=== PATIENT | male | born 1955 | race African-American/Black ===

== ENCOUNTER 2019-12-10 22:41 | Emergency (ER) | payer OTHER ==
[2019-12-10] MEDS ORDERED: NA CHLORIDE 0.9% 1,000 ML ONE (23:18)
[2019-12-10] MEDS ORDERED: FAMOTIDINE 20 MG/2 ML VIAL IV ONE (23:18)
[2019-12-10] MEDS ORDERED: METHYLPREDNISOLONE 125 MG INJ ONE (23:18)
[2019-12-10] MEDS ORDERED: predniSONE 20 MG TAB ONE (23:18)
[2019-12-10] MEDS ORDERED: DIPHENHYDRAMINE 50 MG/ML VIAL ONE (23:18)
--- NOTE | 2019-12-10 23:20 | EDPHYS ---
Physician Documentation [facility] Name: Conrad Otoole Age: 64 yrs Sex: Male : 1955 Arrival Date: 12/10/2019 Time: 22:53 Bed 8 Private MD: ED Physician Mikey Lubin HPI: 12/09 23:15 This 64 yrs old Black Male presents to ER via EMS with complaints of stung by bees, estevan abdominal pain. 23:15 by a bee. Onset: The symptoms/episode began/occurred just prior to arrival. Animal estevan information: Patient/Caregiver unable to provide information related to the animal. The patient presents with abdominal pain in the epigastric area, in the upper abdomen. Onset: The symptoms/episode began/occurred just prior to arrival. The patient presents to the emergency department with nausea, vomiting, diarrhea, abdominal pain. Possible causes: unknown. The symptoms are aggravated by nothing. The symptoms are alleviated by nothing. Associated signs and symptoms: The patient has no apparent associated signs or symptoms. Historical: - Allergies: 22:57 No Known Allergies; rv - Home Meds: 22:57 None [Active]; rv - PMHx: 22:57 None; rv - PSHx: 22:57 None; rv - Immunization history:: Adult Immunizations up to date. - Social history:: Smoking status: Patient reports the use of cigarette tobacco products, smokes one-half pack cigarettes per day. - Family history:: not pertinent. ROS: 23:15 Constitutional: Negative for fever, chills, and weight loss, Eyes: Negative for injury, estevan pain, redness, and discharge, ENT: Negative for injury, pain, and discharge, Neck: Negative for injury, pain, and swelling, Cardiovascular: Negative for chest pain, palpitations, and edema, Respiratory: Negative for shortness of breath, cough, wheezing, and pleuritic chest pain, Back: Negative for injury and pain, : Negative for injury, bleeding, discharge, and swelling, MS/Extremity: Negative for injury and deformity, Skin: Negative for injury, rash, and discoloration, Neuro: Negative for headache, weakness, numbness, tingling, and seizure, Psych: Negative for depression, anxiety, suicide ideation, homicidal ideation, and hallucinations, Allergy/Immunology: Negative for hives, rash, and allergies, Endocrine: Negative for neck swelling, polydipsia, polyuria, polyphagia, and marked weight changes, Hematologic/Lymphatic: Negative for swollen nodes, abnormal bleeding, and unusual bruising. 23:15 Abdomen/GI: Positive for abdominal pain, nausea and vomiting, diarrhea. Exam: 23:15 Constitutional: This is a well developed, well nourished patient who is awake, alert, estevan and in no acute distress. Head/Face: Normocephalic, atraumatic. Eyes: Pupils equal round and reactive to light, extra-ocular motions intact. Lids and lashes normal. Conjunctiva and sclera are non-icteric and not injected. Cornea within normal limits. Periorbital areas with no swelling, redness, or edema. ENT: Nares patent. No nasal discharge, no septal abnormalities noted. Tympanic membranes are normal and external auditory canals are clear. Oropharynx with no redness, swelling, or masses, exudates, or evidence of obstruction, uvula midline. Mucous membranes moist. Neck: Trachea midline, no thyromegaly or masses palpated, and no cervical lymphadenopathy. Supple, full range of motion without nuchal rigidity, or vertebral point tenderness. No Meningismus. Chest/axilla: Normal chest wall appearance and motion. Nontender with no deformity. No lesions are appreciated. Cardiovascular: Regular rate and rhythm with a normal S1 and S2. No gallops, murmurs, or rubs. Normal PMI, no JVD. No pulse deficits. Respiratory: Lungs have equal breath sounds bilaterally, clear to auscultation and percussion. No rales, rhonchi or wheezes noted. No increased work of breathing, no retractions or nasal flaring. Abdomen/GI: Soft, non-tender, with normal bowel sounds. No distension or tympany. No guarding or rebound. No evidence of tenderness throughout. Back: No spinal tenderness. No costovertebral tenderness. Full range of motion. Male : Normal genitalia with no discharge or lesions. Skin: Warm, dry with normal turgor. Normal color with no rashes, no lesions, and no evidence of cellulitis. MS/ Extremity: Pulses equal, no cyanosis. Neurovascular intact. Full, normal range of motion. Neuro: Awake and alert, GCS 15, oriented to person, place, time, and situation. Cranial nerves II-XII grossly intact. Motor strength 5/5 in all extremities. Sensory grossly intact. Cerebellar exam normal. Normal gait. Psych: Awake, alert, with orientation to person, place and time. Behavior, mood, and affect are within normal limits. 23:15 Musculoskeletal/extremity: DVT Exam: No signs of deep vein thrombosis. no pain, no swelling, no tenderness, negative Homans' sign noted on exam, no appreciated bluish discoloration, no erythema, no increased warmth. 12/10 00:28 ECG was reviewed by the Attending Physician. [facility] Vital Signs: 12/09 22:53 BP 153 / 65; Pulse 73; Resp 18; Temp 97.7; Pulse Ox 100% ; Weight 88.45 kg; Height 5 rv ft. 10 in. (177.80 cm); Pain 0/10; 12/10 00:32 BP 153 / 77; Pulse 66; Resp 17; Temp 98; Pulse Ox 100% on R/A; rv 12/09 22:53 Body Mass Index 27.98 (88.45 kg, 177.80 cm) rv MDM: 12/09 22:54 Patient medically screened. [facility] 23:18 Differential diagnosis: Nonspecific abd pain, gastritis. Data reviewed: vital signs, [facility] nurses notes, lab test result(s), EKG. Data interpreted: air sampling and monitoring: rate is 73 beats/min, rhythm is normal sinus rhythm, regular, Pulse oximetry: on room air is 100 %. Test interpretation: by ED physician or midlevel provider: ECG. Counseling: I had a detailed discussion with the patient and/or guardian regarding: the historical points, exam findings, and any diagnostic results supporting the discharge/admit diagnosis, lab results, the need for outpatient follow up, for definitive care, a family practitioner. ED course: much improved , benign exam, op clear. 23:57 Medication response: Benadryl, Pepcid, solumedrol. [facility] 12/09 23:06 Order name: CBC with Diff [facility] 12/09 23:06 Order name: Comprehensive Metabolic Panel; Complete Time: 00:14 [facility] 12/09 23:06 Order name: Troponin (emerg Dept Use Only); Complete Time: 00:14 [facility] 12/09 23:06 Order name: Lipase; Complete Time: 00:14 [facility] 12/10 00:25 Order name: Manual Differential [facility] 12/09 23:06 Order name: EKG; Complete Time: 23:07 [facility] 12/09 23:06 Order name: EKG - Nurse/Tech; Complete Time: 23:42 estevan EC/16 00:28 Rate is 69 beats/min. Rhythm is regular. QRS [place] is Normal. [place] interval is normal. QRS [place] interval is normal. QT interval is normal. No Q waves. T waves are Normal. No ST changes noted. Clinical impression: NSR w/ Non-specific ST/T Changes and No evidence of ischemia. Administered Medications: 12/09 23:41 Drug: predniSONE 20 mg Route: PO; rv 12/10 00:33 Follow up: Response: No adverse reaction rv 12/09 23:42 Drug: NS 0.9% 1000 ml Route: IV; Rate: 1 bolus; Site: right antecubital; rv 12/10 00:34 Follow up: IV Status: Completed infusion; IV Intake: 1000ml rv 12/09 23:42 Drug: Benadryl 25 mg Route: IVP; Site: right antecubital; rv 12/10 00:33 Follow up: Response: No adverse reaction rv 12/09 23:42 Drug: Pepcid 20 mg Route: IVP; Site: right antecubital; rv 12/10 00:33 Follow up: Response: No adverse reaction rv 12/09 23:42 Drug: SOLU-Medrol 125 mg Route: IVP; Site: right antecubital; rv 12/10 00:33 Follow up: Response: No adverse reaction rv Disposition: 12/10/19 23:20 Discharged to Home. Impression: Bee allergy status, Vomiting, Abdominal tenderness. - Condition is Stable. - Discharge Instructions: Abdominal Pain, Adult, Allergies, Adult, Bee, Wasp, or Hornet Sting, Adult, Nausea and Vomiting, Adult, Nausea and Vomiting, Adult, [id number], Abdominal Pain, Adult, [id number], Allergies, [id number]. - Prescriptions for Benadryl 25 mg Oral Capsule - take 1 capsule by ORAL route every 6 hours As needed; 30 tablet. Pepcid 20 mg Oral Tablet - take 1 tablet by ORAL route every 12 hours for 10 days; 20 tablet. Zofran 4 mg Oral Tablet - take 1 tablet by ORAL route every 12 hours As needed; 20 tablet. Prednisone 20 mg Oral Tablet - take 2 tablet by ORAL route once daily for 5 days; 10 tablet. EpiPen 0.3 mg Injection auto- injector - inject 1 pen by INTRAMUSCULAR route as directed Inject into the outer portion of the thigh, through clothing if necessary. Indicated in the emergency treatment of allergic reactions; 1 box. - Medication Reconciliation Form, Thank You Letter, Antibiotic Education, Prescription Opioid Use form. - Follow up: Private Physician; When: 2 - 3 days; Reason: Recheck today's complaints, Continuance of care, Re-evaluation by your physician. - Problem is new. - Symptoms have improved. Signatures: Dispatcher [employer] EDMS Mikey Lubin MD MD cha Vicente, Ronaldo RN RN rv Corrections: (The following items were deleted from the chart) 00:15 12/09 23:20 12/10/2019 23:20 Discharged to Home. Impression: Bee allergy status; estevan Vomiting. Condition is Stable. Forms are Medication Reconciliation Form, Thank You Letter, Antibiotic Education, Prescription Opioid Use. Follow up: Private Physician; When: 2 - 3 days; Reason: Recheck today's complaints, Continuance of care, Re-evaluation by your physician. Problem is new. Symptoms have improved. estevan 12/10 00:39 00:15 12/10/2019 23:20 Discharged to Home. Impression: Bee allergy status; Vomiting; rv Abdominal tenderness. Condition is Stable. Discharge Instructions: Allergies, Adult, Bee, Wasp, or Hornet Sting, Adult, Nausea and Vomiting, Adult, Nausea and Vomiting, Adult, [id number], Allergies, [id number]-ab-Tqoh. Prescriptions for Benadryl 25 mg Oral Capsule - take 1 capsule by ORAL route every 6 hours As needed; 30 tablet, Pepcid 20 mg Oral Tablet - take 1 tablet by ORAL route every 12 hours for 10 days; 20 tablet, Zofran 4 mg Oral Tablet - take 1 tablet by ORAL route every 12 hours As needed; 20 tablet, Prednisone 20 mg Oral Tablet - take 2 tablet by ORAL route once daily for 5 days; 10 tablet, EpiPen 0.3 mg Injection auto-injector - inject 1 pen by INTRAMUSCULAR route as directed Inject into the outer portion of the thigh, through clothing if necessary. Indicated in the emergency treatment of allergic reactions; 1 box. and Forms are Medication Reconciliation Form, Thank You Letter, Antibiotic Education, Prescription Opioid Use. Follow up: Private Physician; When: 2 - 3 days; Reason: Recheck today's complaints, Continuance of care, Re-evaluation by your physician. Problem is new. Symptoms have improved. estevan
--- NOTE | 2019-12-10 23:20 | ER ---
Nurse's Notes [facility] Name: Conrad Otoole Age: 64 yrs Sex: Male : 1955 Arrival Date: 12/10/2019 Time: 22:53 Bed 8 Private MD: Diagnosis: Bee allergy status;Vomiting;Abdominal tenderness Presentation: 12/09 22:53 Chief complaint: EMS states: COMPLAINING OF ABDOMINAL PAIN, NAUSEA AND VOMITING. rv PATIENT WAS ON THE COUCH UPON ASSESSMENT AND COMPLAINING OF CRAMPING ALL OVER ABDOMEN. PATIENT TOLD THAT HE WAS STUNG BY BEES THE EVENING BEFORE AND TOOK BENADRYL. TODAY HAD AN EPISODE OF WATERY STOOL. GIVEN 400ML NS BOLUS AND REGLAN 10MG IV ARTIFACTS CONSERVATOR. Coronavirus screen: Proceed with normal triage. Ebola Screen: No symptoms or risks identified at this time. Initial Sepsis Screen: Does the patient meet any 2 criteria? No. Patient's initial sepsis screen is negative. Does the patient have a suspected source of infection? No. Patient's initial sepsis screen is negative. Risk Assessment: Do you want to hurt yourself or someone else? Patient reports no desire to harm self or others. Onset of symptoms is unknown. 22:53 Method Of Arrival: EMS: [facility] 22:53 Acuity: RAYSHAWN 3 rv Triage Assessment: 22:57 General: Appears comfortable, Behavior is calm, cooperative. Pain: Complains of pain in rv abdomen Pain currently is 0 out of 10 on a pain scale. Quality of pain is described as crampy. EENT: No signs and/or symptoms were reported regarding the EENT system. Neuro: Level of Consciousness is awake, alert, obeys commands, Oriented to person, place, time, situation. Cardiovascular: Patient's skin is warm and dry. Respiratory: Airway is patent. GI: Abdomen is round non-distended. Derm: Skin is intact. Historical: - Allergies: 22:57 No Known Allergies; rv - Home Meds: 22:57 None [Active]; rv - PMHx: 22:57 None; rv - PSHx: 22:57 None; rv - Immunization history:: Adult Immunizations up to date. - Social history:: Smoking status: Patient reports the use of cigarette tobacco products, smokes one-half pack cigarettes per day. - Family history:: not pertinent. Screenin:58 Abuse screen: Denies threats or abuse. Denies injuries from another. Nutritional rv screening: No deficits noted. Tuberculosis screening: No symptoms or risk factors identified. Fall Risk None identified. Assessment: 12/10 00:33 Reassessment: Patient and/or family updated on plan of care and expected duration. Pain rv level reassessed. Patient is alert, oriented x 3, equal unlabored respirations, skin warm/dry/pink. Patient denies pain at this time. Patient states feeling better. Patient states symptoms have improved. Vital Signs: 12/09 22:53 BP 153 / 65; Pulse 73; Resp 18; Temp 97.7; Pulse Ox 100% ; Weight 88.45 kg; Height 5 rv ft. 10 in. (177.80 cm); Pain 0/10; 12/10 00:32 BP 153 / 77; Pulse 66; Resp 17; Temp 98; Pulse Ox 100% on R/A; rv 12/09 22:53 Body Mass Index 27.98 (88.45 kg, 177.80 cm) rv ED Course: 12/09 22:53 Patient arrived in ED. rv 22:54 Mikey Lubin MD is Attending Physician. [facility] 22:57 Triage completed. rv 22:57 Arm band placed on Patient placed in the treatment room, on a stretcher, Patient rv notified of wait time. 22:58 Patient has correct armband on for positive identification. Bed in low position. Call rv light in reach. Side rails up X 1. Pulse ox on. NIBP on. 23:07 Jasen Luna RN is Primary Nurse. rv 23:25 Maintain EMS IV. Dressing intact. Good blood return noted. Site clean \T\ dry. Gauge \T\ rv site: G20 RIGHT AC. IV is patent, with fluids infusing freely, with good blood return. 12/10 00:38 No provider procedures requiring assistance completed. IV discontinued, intact, rv bleeding controlled, No redness/swelling at site. Pressure dressing applied. Administered Medications: 12/09 23:41 Drug: predniSONE 20 mg Route: PO; rv 12/10 00:33 Follow up: Response: No adverse reaction rv 12/09 23:42 Drug: NS 0.9% 1000 ml Route: IV; Rate: 1 bolus; Site: right antecubital; rv 12/10 00:34 Follow up: IV Status: Completed infusion; IV Intake: 1000ml rv 12/09 23:42 Drug: Benadryl 25 mg Route: IVP; Site: right antecubital; rv 12/10 00:33 Follow up: Response: No adverse reaction rv 12/09 23:42 Drug: Pepcid 20 mg Route: IVP; Site: right antecubital; rv 12/10 00:33 Follow up: Response: No adverse reaction rv 12/09 23:42 Drug: SOLU-Medrol 125 mg Route: IVP; Site: right antecubital; rv 12/10 00:33 Follow up: Response: No adverse reaction rv Intake: 00:34 IV: 1000ml; Total: 1000ml. rv Outcome: 12/09 23:20 Discharge ordered by . estevan 12/10 00:38 Discharged to home ambulatory. rv Condition: improved Discharge instructions given to patient, Instructed on discharge instructions, follow up and referral plans. medication usage, Demonstrated understanding of instructions, follow-up care, medications, Prescriptions given X 5 00:39 Patient left the ED. rv Signatures: Mikey Lubin MD MD cha Vicente, Ronaldo RN RN rv
[2019-12-10 23:58] LABS: Absolute Lymphocytes (CBC) 0.9 K/uL (0.7-4.9); Basophils % 0.4 % (0-1.3); Hematocrit 42.1 % (39.6-49.0); Lymphocytes % 5.2 % (15.3-44.8); MPV 10.3 fL (7.6-11.3); RBC Red Blood Cell Count 4.63 M/uL (4.33-5.43)
[2019-12-11 00:11] LABS: ALT/SGPT 30 U/L (12-78); AST/SGOT 28 U/L (15-37); Albumin 3.8 g/dL (3.4-5.0); Alkaline Phosphatase 119 U/L (45-117); BUN Blood Urea Nitrogen 19 mg/dL (7-18); Bicarbonate 24 mmol/L (21-32); Bilirubin Total 0.2 mg/dL (0.2-1.0); Glucose Level 107 mg/dL (74-106); Lipase 110 U/L (73-393); Potassium 3.8 mmol/L (3.5-5.1); Protein, Total 8.1 g/dL (6.4-8.2); Sodium Level 144 mmol/L (136-145); Troponin (Emerg Dept Use Only) < 0.02 ng/mL (0.0-0.045)
[2019-12-11 01:25] VITALS: O2SAT 100
[2019-12-11 01:26] VITALS: BP 153/77; TEMP 98
[2019-12-11 01:33] LABS: Blood Morphology Comment NOT SEEN (NOT SEEN); Platelet Estimate ADEQ
--- NOTE | 2019-12-11 07:23 | EKG ---
Test Date: 2019-12-11 Test Time: 00:22:24 Sales Vendor: RV MEASUREMENT RESULTS: Intervals: Rate: 69 WA: 156 QRSD: 142 QT: 444 QTc: 475 Jenkins: P: 12 WA: 156 QRS: -57 T: 18 INTERPRETIVE STATEMENTS: Normal sinus rhythm Right bundle branch block Left anterior fascicular block Bifascicular block Abnormal ECG No previous ECG available for comparison Electronically Signed On 12-11-19 07:22:51 CDT by Miguel Rees
== END 2019-12-11 00:39 | disposition home or self-care (01) ==
LOC: ER 22:41
DX: R10.819 Abdominal tenderness, unspecified site (principal); R11.10 Vomiting, unspecified; Z91.030 Bee allergy status; F17.210 Nicotine dependence, cigarettes, uncomplicated
CPT/HCPCS: 96361; 93005; 85025; 36415; 84484; 83690; 80053; 96375; 96374; 99284; J1200; J7512; J7030; J2930